=== PATIENT | female | born 1990 | race Caucasian/White ===

== ENCOUNTER → 2016-08-07 | Outpatient (CLI) | payer OTHER ==
[2016-08-09 12:44] LABS: HBsAg Prenatal NEGATIVE (NEGATIVE)
[2016-08-09 13:11] LABS: HIV SCREEN CENTAUR NEGATIVE (NEGATIVE)
== END ==
LOC: M SMT 10:33
PROVIDERS: ATTEND Advanced Practice Midwife
DX: Z11.3 Encounter for screening for infections with a predominantly sexual mode of transmission (principal)

== ENCOUNTER → 2016-12-29 | Outpatient (CLI) | payer OTHER ==
--- NOTE | 2016-12-29 13:37 | REP ---
PELVIC ULTRASOUND: Real-time sonographic evaluation of pelvis performed utilizing transabdominal and endovaginal technique. Bladder measures 9.1 x 6.5 x 10.1 cm. Uterus measures 8.3 x 3.8 x 5.0 cm. IUD is in the endometrial canal. Endometrium is largely obscured by the IUD, estimated thickness is 6 mm. There is no endometrial fluid identified. Right ovary measures 6.3 x 3.6 x 6.4 cm. There is a simple right ovarian cyst 4.1 x 5.1 x 3.9 cm. Left ovary measures 3.1 x 2.2 x 2.2 cm. There is blood flow seen in each ovary with duplex Doppler evaluation, with no torsion, RI right ovary 0.56 and left ovary 0.50. There is no other evidence of adnexal mass. There is no free fluid. IMPRESSION: IUD in place within the endometrial canal. Simple right ovarian cyst. Signed by Eliseo Oneill MD 12/29/2016 04:45 P
== END ==
LOC: M RAD 11:58
PROVIDERS: ATTEND Advanced Practice Midwife
DX: Z30.431 Encounter for routine checking of intrauterine contraceptive device (principal)

== ENCOUNTER → 2017-01-08 | Outpatient (CLI) | payer MEDICAID | LOC: M OUTALCOH 07:52 | PROVIDERS: ATTEND Psychiatry & Neurology Psychiatry | DX: F10.20 Alcohol dependence, uncomplicated (principal) ==

== ENCOUNTER 2017-01-10 16:49 | Outpatient (RCR) | payer MEDICAID | END 2017-01-11 | LOC: M OUTALCOH 16:49 | PROVIDERS: ATTEND Psychiatry & Neurology Psychiatry | DX: F10.20 Alcohol dependence, uncomplicated (principal) ==

== ENCOUNTER 2017-02-09 15:53 | Outpatient (RCR) | payer MEDICAID | END 2017-02-10 | LOC: M OUTALCOH 15:53 | PROVIDERS: ATTEND Psychiatry & Neurology Psychiatry | DX: F10.20 Alcohol dependence, uncomplicated (principal); Z72.0 Tobacco use ==

== ENCOUNTER 2017-04-11 16:00 | Outpatient (RCR) | payer MEDICAID | END 2017-04-12 | LOC: M OUTALCOH 16:00 | PROVIDERS: ATTEND Psychiatry & Neurology Psychiatry | DX: F10.20 Alcohol dependence, uncomplicated (principal); Z72.0 Tobacco use; F16.20 Hallucinogen dependence, uncomplicated; F12.10 Cannabis abuse, uncomplicated ==

== ENCOUNTER 2017-04-16 16:00 | Outpatient (RCR) | payer MEDICAID | END 2017-05-13 | LOC: M OUTALCOH 04-18 16:00 | DX: F10.20 Alcohol dependence, uncomplicated (principal); Z72.0 Tobacco use; F16.20 Hallucinogen dependence, uncomplicated; F12.10 Cannabis abuse, uncomplicated ==

== ENCOUNTER 2017-05-21 09:26 | Outpatient (RCR) | payer MEDICAID | END 2017-06-13 | LOC: M OUTALCOH 06-04 16:00 | DX: F10.20 Alcohol dependence, uncomplicated (principal); F16.20 Hallucinogen dependence, uncomplicated; F12.10 Cannabis abuse, uncomplicated; Z72.0 Tobacco use ==

== ENCOUNTER 2017-06-18 09:36 | Outpatient (RCR) | payer MEDICAID | END 2017-07-11 | LOC: M OUTALCOH 07-02 16:00 | DX: F10.20 Alcohol dependence, uncomplicated (principal); F16.20 Hallucinogen dependence, uncomplicated; F12.10 Cannabis abuse, uncomplicated; Z72.0 Tobacco use ==

== ENCOUNTER 2017-07-16 09:25 | Outpatient (RCR) | payer SELFPAY, MEDICAID | END 2017-08-11 | LOC: M OUTALCOH 09:25 | DX: F10.20 Alcohol dependence, uncomplicated (principal); Z72.0 Tobacco use; F16.20 Hallucinogen dependence, uncomplicated; F12.10 Cannabis abuse, uncomplicated ==

== ENCOUNTER → 2018-01-25 | Outpatient (REF) | payer OTHER ==
[2018-01-25 12:01] LABS: HEMATOCRIT 42.1 % (36.0-47.0); HEMOGLOBIN 13.8 g/dl (12.0-15.5); MEAN CORPUSCULAR HEMOGLOBIN 32.9 pg (27.0-33.0); MEAN CORPUSCULAR HGB CONC 32.8 g/dl (32.0-36.5); MEAN CORPUSCULAR VOLUME 100.5 fl (80.0-96.0); PLATELET COUNT, AUTOMATED 183 10^3/uL (150-450); RED BLOOD COUNT 4.19 10^6/uL (4.00-5.40); RED CELL DISTRIBUTION WIDTH 11.7 % (11.5-14.5); WHITE BLOOD COUNT 3.5 10^3/uL (4.0-10.0)
[2018-01-25 14:00] LABS: HEPATITIS A ANTIBODY IGM NEGATIVE (NEGATIVE); HEPATITIS B CORE ANTIBODY IGM NEGATIVE (NEGATIVE); HEPATITIS B SURFACE ANTIGEN NEGATIVE (NEGATIVE); HIV 1&2 SCREEN CENTAUR NEGATIVE (NEGATIVE); TOTAL 25(OH) VITAMIN D 29.8 NG/ML (30.0-100.0)
[2018-01-25 14:00] LABS: HEPATITIS C VIRUS ABY INDEX 0.1 INDEX (<0.8)
[2018-01-25 15:10] LABS: CHLAMYDIA DNA AMPLIFICATION NEGATIVE (NEGATIVE); GC DNA AMPLIFICATION NEGATIVE (NEGATIVE)
== END ==
LOC: M SFHCPLAZ 08:03
DX: Z00.00 Encounter for general adult medical examination without abnormal findings (principal); Z78.9 Other specified health status; E55.9 Vitamin D deficiency, unspecified; Z20.2 Contact with and (suspected) exposure to infections with a predominantly sexual mode of transmission; Z20.5 Contact with and (suspected) exposure to viral hepatitis

== ENCOUNTER → 2018-04-12 | Outpatient (REF) | payer OTHER ==
[2018-04-12 13:19] LABS: HIV 1&2 SCREEN CENTAUR NEGATIVE (NEGATIVE)
[2018-04-12 13:51] LABS: CHLAMYDIA DNA AMPLIFICATION NEGATIVE (NEGATIVE); GC DNA AMPLIFICATION NEGATIVE (NEGATIVE)
== END ==
LOC: M SFHCPLAZ 10:02
DX: Z20.2 Contact with and (suspected) exposure to infections with a predominantly sexual mode of transmission (principal)
CPT/HCPCS: 36415

== ENCOUNTER → 2019-09-22 | Outpatient (REF) | payer OTHER ==
[2019-09-22 20:07] LABS: CHLAMYDIA DNA AMPLIFICATION NEGATIVE (NEGATIVE); GC DNA AMPLIFICATION NEGATIVE (NEGATIVE)
== END ==
LOC: M SFHCWAGY 17:18
PROVIDERS: ATTEND Nurse Practitioner Women's Health
DX: Z11.3 Encounter for screening for infections with a predominantly sexual mode of transmission (principal)

== ENCOUNTER 2019-09-28 15:42 | Emergency (ER) | payer OTHER ==
[~2019-09-28] VITALS: Ht 165.1 cm; Wt 59.1 kg
--- NOTE | 2019-09-28 16:23 | REP ---
Clinical: Facial trauma. Technique: Axial noncontrast images through the facial bones to include the mandible with coronal and sagittal re-formations. Findings: Osseous structures are intact and there is no evidence for acute fracture or dislocation. Sinuses are well aerated and without fluid level to suggest occult injury. 1 cm mucocele in the right maxillary sinus incidentally noted. Zygomatic arches are intact. Mandible and temporomandibular joints are normal. Orbits are symmetric and without evidence for injury. Impression: Essentially normal facial bone CT without evidence for acute pathology or trauma/injury. Electronically Signed by Adam Teague MD 09/28/2019 04:14 P
--- NOTE | 2019-09-28 16:25 | REP ---
Clinical: Trauma . Technique: AP, lateral, bilateral oblique views left ankle . Findings: Diffuse swelling is appreciated. No acute fracture or dislocation. Skeletal structures and joint spaces are intact and normal. Ankle mortise appears stable. No subcutaneous emphysema or radiodense foreign body. Impression: Swelling. No acute fracture or dislocation. Electronically Signed by Adam Teague MD 09/28/2019 04:15 P
--- NOTE | 2019-09-28 16:54 | REP ---
Clinical: Trauma. Technique: AP, lateral, bilateral oblique views left knee . Findings: The osseous structures and joint spaces are intact and normal. There is no evidence for acute fracture or dislocation. No joint effusion is appreciated. Surrounding soft tissues are unremarkable. No subcutaneous emphysema or radiodense foreign body. Impression: No acute fracture or dislocation. Electronically Signed by Adam Teague MD 09/28/2019 04:45 P
[2019-09-28] MEDS ORDERED: ACETAMINOPHEN 500 MG TAB PO ONE (17:15)
[2019-09-28] MEDS ORDERED: BOOSTRIX/ADACEL VACCINE (DIPHTH/PERTUSS/ACELL/TETANUS) 0.5ML SYR IM ONE (17:15)
[2019-09-28] MEDS ORDERED: IBUPROFEN 800 MG TAB PO ONE (17:15)
[2019-09-28 17:29] VITALS: BP 118/74
== END 2019-09-28 17:57 | disposition home or self-care (01) ==
LOC: M ED 15:42
DX: S93.402A Sprain of unspecified ligament of left ankle, initial encounter (principal); S00.81XA Abrasion of other part of head, initial encounter; S80.02XA Contusion of left knee, initial encounter; V00.131A Fall from skateboard, initial encounter; Y92.410 Unspecified street and highway as the place of occurrence of the external cause; F17.200 Nicotine dependence, unspecified, uncomplicated

== ENCOUNTER → 2019-11-04 | Outpatient (REF) | payer OTHER ==
[2019-11-04 22:19] LABS: CHLAMYDIA DNA AMPLIFICATION NEGATIVE (NEGATIVE); GC DNA AMPLIFICATION NEGATIVE (NEGATIVE)
== END ==
LOC: M SFHCWAGY 16:39
PROVIDERS: ATTEND Nurse Practitioner Women's Health
DX: A59.9 Trichomoniasis, unspecified (principal); Z11.3 Encounter for screening for infections with a predominantly sexual mode of transmission

== ENCOUNTER → 2019-12-20 | Emergency (ER) | payer OTHER ==
[~2019-12-20] MED LIST: BOOSTRIX/ADACEL VACCINE (DIPHTH/PERTUSS/ACELL/TETANUS) 0.5ML SYR As Ordered ONE; BOOSTRIX/ADACEL VACCINE (DIPHTH/PERTUSS/ACELL/TETANUS) 0.5ML SYR ONE; LIDOCAINE 1% SDV 5ML VIAL As Ordered ONE; LIDOCAINE 1% SDV 5ML VIAL ONE; cefTRIAXone SOD 250MG VIAL (J0696 PER 250MG) As Ordered ONE; cefTRIAXone SOD 250MG VIAL (J0696 PER 250MG) ONE
--- NOTE | 2020-02-06 09:25 | REP ---
RIGHT HAND SERIES: 4-VIEWS HISTORY: Cat bite dorsal hand with swelling. FINDINGS: 4-views are performed. There is no acute fracture, dislocation or intrinsic bone disease. No radiopaque foreign body is visualized in the soft tissues. IMPRESSION: Negative right hand series. MTDD
== END | disposition home or self-care (01) ==
LOC: M ED 18:30
DX: S61.451A Open bite of right hand, initial encounter (principal); L03.113 Cellulitis of right upper limb; W55.01XA Bitten by cat, initial encounter; Y92.099 Unspecified place in other non-institutional residence as the place of occurrence of the external cause; Y93.9 Activity, unspecified; Y99.9 Unspecified external cause status; F17.200 Nicotine dependence, unspecified, uncomplicated
CPT/HCPCS: 73130; 90471; 90715; 96374; 99282; J0696

== ENCOUNTER → 2020-05-18 | Outpatient (CLI) | payer SELFPAY | LOC: M LABSMTC 13:52 | PROVIDERS: ATTEND Pediatrics | DX: Z20.822 Contact with and (suspected) exposure to COVID-19 (principal) ==

== ENCOUNTER → 2020-06-23 | Outpatient (REF) | payer OTHER ==
[2020-06-23 18:53] LABS: HEMATOCRIT 40.3 % (36.0-47.0); HEMOGLOBIN 13.5 g/dl (12.0-15.5); MEAN CORPUSCULAR HEMOGLOBIN 32.4 pg (27.0-33.0); MEAN CORPUSCULAR HGB CONC 33.5 g/dl (32.0-36.5); MEAN CORPUSCULAR VOLUME 96.6 fl (80.0-96.0); PLATELET COUNT, AUTOMATED 226 10^3/uL (150-450); RED BLOOD COUNT 4.17 10^6/uL (4.00-5.40); WHITE BLOOD COUNT 4.2 10^3/uL (4.0-10.0)
[2020-06-23 19:25] LABS: HCG, SERUM QUANTITATIVE 3968 MIU/ML
[2020-06-23 19:57] LABS: HEPATITIS C VIRUS ABY INDEX 0.1 INDEX (<0.8)
[2020-06-23 19:58] LABS: HIV 1&2 SCREEN CENTAUR NEGATIVE (NEGATIVE)
== END ==
LOC: M LAB REF 16:44
PROVIDERS: ATTEND Advanced Practice Midwife
DX: O36.80X0 Pregnancy with inconclusive fetal viability, not applicable or unspecified (principal)

== ENCOUNTER → 2020-07-01 | Outpatient (CLI) | payer OTHER ==
--- NOTE | 2020-07-01 19:15 | REP ---
INDICATION: DATING/VIABILITY COMPARISON: None. TECHNIQUE: Transabdominal and transvaginal 1st trimester obstetrical ultrasound with color Doppler evaluation. FINDINGS: Single live early intrauterine is appreciated. Gestational sac with yolk sac and pole identified. Hedley-rump length of 6 mm corresponds to 6 weeks 3 days gestational age with estimated date of delivery 02/21/2021. heart rate equals 91 beats per minute. Very small subchorionic hemorrhage measuring roughly 2 x 4 x 3 mm cannot be excluded. IMPRESSION: Single live early intrauterine at 6 weeks 3 days gestational age. Complete anatomical assessment should be performed and 19-20 weeks. <Electronically signed by Adam Teague > 07/01/201910
== END ==
LOC: M WHC 14:22
PROVIDERS: ATTEND Advanced Practice Midwife
DX: O36.80X0 Pregnancy with inconclusive fetal viability, not applicable or unspecified (principal); Z3A.01 Less than 8 weeks gestation of pregnancy

== ENCOUNTER → 2020-07-09 | Outpatient (CLI) | payer OTHER ==
--- NOTE | 2020-07-09 12:18 | REP ---
INDICATION: OTHER HEMORRHAGE IN EARLY . COMPARISON: Comparison study is from July 01, 2020.. TECHNIQUE: Transabdominal and transvaginal scanning. FINDINGS: Scanning demonstrates a living single intrauterine gestation. The crown-rump length of the embryonic pole is 8 mm. This corresponds with a gestational age estimate today of 6 weeks 5 days. I note that a crown-rump length of 6 mm was measured 8 days ago for gestational age estimate than of 6 weeks 3 days. Lack of interval growth. heart rate is slow, measured at 69 beats per minute. This is a worrisome sign for viability. No subchorionic hemorrhage is visible today. No extra uterine abnormality is observed. IMPRESSION: Single intrauterine gestation at 6 weeks 5 days by crown-rump length today. bradycardia. Suggestive of threatened AB. STAN by today's sonography February 27, 2021. STAN by prior sonography February 21, 2021 <Electronically signed by Stew Patel > 07/09/20 [id number]
== END ==
LOC: M RAD 10:45
PROVIDERS: ATTEND Advanced Practice Midwife
DX: O20.8 Other hemorrhage in early pregnancy (principal); Z3A.01 Less than 8 weeks gestation of pregnancy

== ENCOUNTER → 2020-07-12 | Outpatient (CLI) | payer OTHER ==
--- NOTE | 2020-07-12 10:42 | REP ---
INDICATION: F/U SUBCHRONIC HEMORRHAGE. COMPARISON: 07/09/2020. TECHNIQUE: Real-time sonographic evaluation of pelvis performed utilizing transabdominal and endovaginal technique. FINDINGS: Uterus measures 8.3 x 4.2 x 5.5 cm. Heterogeneous endometrial thickening is seen in the lower uterine segment and cervix up to 10 mm in AP dimension. The endometrium in the fundus measures 5 mm. No gestational sac or definite retained products of conception are visualized. The right ovary measures 4.2 x 2.6 x 2.6 cm, resistive index 0.45, left ovary 3.6 x 2.8 x 2.5 cm, resistive index 0.53. There is no adnexal mass or torsion. There is no free fluid. IMPRESSION: Findings compatible with spontaneous . Thickened heterogeneous echo endometrial echo complex in the lower uterine segment and cervix probably represents blood clots. No gestational sac or definite retained products of conception visualized. <Electronically signed by Eliseo Oneill > 07/12/20 [id number]
== END ==
LOC: M RAD 09:54
PROVIDERS: ATTEND Advanced Practice Midwife
DX: O20.8 Other hemorrhage in early pregnancy (principal); Z3A.00 Weeks of gestation of pregnancy not specified

== ENCOUNTER → 2020-07-15 | Outpatient (REF) | payer OTHER | LOC: M LAB REF 12:12 | PROVIDERS: ATTEND Obstetrics & Gynecology | DX: O02.1 Missed abortion (principal) ==

== ENCOUNTER → 2020-07-22 | Outpatient (REF) | payer OTHER | LOC: M LAB REF 11:54 | PROVIDERS: ATTEND Advanced Practice Midwife | DX: O02.1 Missed abortion (principal) ==

== ENCOUNTER → 2020-10-12 | Outpatient (REF) | payer OTHER ==
[2020-10-12 18:11] LABS: HEMATOCRIT 37.9 % (36.0-47.0); HEMOGLOBIN 12.4 g/dl (12.0-15.5); MEAN CORPUSCULAR HEMOGLOBIN 31.5 pg (27.0-33.0); MEAN CORPUSCULAR HGB CONC 32.7 g/dl (32.0-36.5); MEAN CORPUSCULAR VOLUME 96.2 fl (80.0-96.0); PLATELET COUNT, AUTOMATED 261 10^3/uL (150-450); RED BLOOD COUNT 3.94 10^6/uL (4.00-5.40); WHITE BLOOD COUNT 5.6 10^3/uL (4.0-10.0)
[2020-10-12 19:28] LABS: HCG, SERUM QUANTITATIVE 4777 MIU/ML; HEPATITIS B SURFACE ANTIGEN NEGATIVE (NEGATIVE); HIV 1&2 SCREEN CENTAUR NEGATIVE (NEGATIVE)
== END ==
LOC: M LAB REF 17:47
PROVIDERS: ATTEND Advanced Practice Midwife
DX: Z32.01 Encounter for pregnancy test, result positive (principal)

== ENCOUNTER → 2021-03-28 | Outpatient (CLI) | payer OTHER ==
[2021-03-28 12:57] LABS: HEMATOCRIT 33.2 % (36.0-47.0); HEMOGLOBIN 10.8 g/dl (12.0-15.5); MEAN CORPUSCULAR HEMOGLOBIN 31.4 pg (27.0-33.0); MEAN CORPUSCULAR HGB CONC 32.5 g/dl (32.0-36.5); MEAN CORPUSCULAR VOLUME 96.5 fl (80.0-96.0); PLATELET COUNT, AUTOMATED 218 10^3/uL (150-450); RED BLOOD COUNT 3.44 10^6/uL (4.00-5.40); WHITE BLOOD COUNT 7.8 10^3/uL (4.0-10.0)
== END ==
LOC: M LAB 10:56
PROVIDERS: ATTEND Advanced Practice Midwife
DX: Z34.02 Encounter for supervision of normal first pregnancy, second trimester (principal)

== ENCOUNTER → 2021-04-11 | Outpatient (CLI) | payer OTHER | LOC: M LAB 08:09 | PROVIDERS: ATTEND Advanced Practice Midwife | DX: O99.810 Abnormal glucose complicating pregnancy (principal); Z3A.00 Weeks of gestation of pregnancy not specified ==

== ENCOUNTER → 2024-01-31 | Outpatient (REF) | payer BC, MEDICAID ==
[2024-01-31 22:01] LABS: Trichomonas vaginalis (AMP) NOT DETECTED (NEGATIVE)
[2024-01-31 22:24] LABS: GC DNA AMPLIFICATION NEGATIVE (NEGATIVE)
[2024-02-02 13:33] LABS: HPV APTIMA Not Detected (Not Detected)
== END ==
LOC: M SFHCWAGY 17:19
PROVIDERS: ATTEND Nurse Practitioner Family
DX: Z11.3 Encounter for screening for infections with a predominantly sexual mode of transmission (principal); Z12.4 Encounter for screening for malignant neoplasm of cervix; Z11.51 Encounter for screening for human papillomavirus (HPV)
CPT/HCPCS: 87624; 87661; 87810; 87850; G0123